=== PATIENT | female | born 1985 | race Caucasian/White ===

== ENCOUNTER 2017-12-09 12:29 | Emergency (ER) | payer MEDICAID ==
[2017-12-09] MEDS ORDERED: HYDROmorphONE/DILAUDID 1 MG/ML INJ IVP ONE (13:16)
[2017-12-09] MEDS ORDERED: ONDANSETRON 4 MG/2 ML VIAL IVP ONE (13:16)
[2017-12-09] MEDS ORDERED: NS 1,000 ML IV ONE (13:16)
--- NOTE | 2017-12-09 13:18 | EDPHY ---
H & P Smoking Status: Never smoked Time Seen by Provider: 12/09/17 12:47 HPI/ROS: CHIEF COMPLAINT: Abdominal pain HISTORY OF PRESENT ILLNESS: 32-year-old female presents to the emergency department with abrupt onset of right lower quadrant abdominal pain that began 2 hr prior to arrival. The patient states that she had just had intercourse and then developed pain in her right lower abdomen. Pain became more intense and she nearly fell over because it was so painful. She feels nauseous. She has a history of ovarian cyst, specifically polycystic ovarian syndrome, and endometriosis. She has had previous surgery. No chest pain or difficulty breathing. No fevers or chills. No urinary symptoms. She is currently on her menstrual cycle. She has a history of very irregular menstrual cycles. REVIEW OF SYSTEMS: Constitutional: No fever, no chills. Eyes: No double or blurry vision. ENT: No sore throat. Respiratory: No cough, no shortness of breath. Cardiac: No chest pain. Gastrointestinal: Abdominal pain as above. No vomiting or diarrhea. Genitourinary: No dysuria. Musculoskeletal: No neck or back pain. Skin: No rashes. Neurological: No headache. (Chico Mcguire) Past Medical/Surgical History: Endometriosis, PCOS, irregular menses (Chico Mcguire) Social History: Single (Chico Mcguire) Physical Exam: General Appearance: Alert, no distress. Afebrile. Eyes: Pupils equal and round. Extraocular motions are all intact. ENT: Mouth: Mucous membranes moist. Respiratory: No wheezing, rhonchi, or rales, lungs are clear to auscultation. Cardiovascular: Regular rate and rhythm. Gastrointestinal: Abdomen is soft. Tenderness with palpation especially the right lower quadrant. There is no masses, rebound or guarding noted. No CVA tenderness bilaterally. Neurological: Alert and oriented x 3, cranial nerves II through XII grossly intact Skin: Warm and dry, no rashes. Musculoskeletal: Nontender to palpate along the cervical, thoracic or lumbar spine. Neck is supple. Extremities: Full range of motion and no peripheral edema. Psychiatric: Patient is oriented X 3, there is no agitation. (Chico Mcguire) Constitutional: Initial Vital Signs Temperature (C) 36.7 C 12/09/17 12:33 Heart Rate 79 12/09/17 12:33 Respiratory Rate 16 12/09/17 12:33 Blood Pressure 131/86 H 12/09/17 12:33 O2 Sat (%) 97 12/09/17 12:33 O2 Delivery Mode Room Air Allergies/Adverse Reactions: No Known Allergies Allergy (Unverified 12/09/17 12:33) Home Medications: Medication Instructions Recorded oxyCODONE/APAP 5/325 [Percocet 1 - 2 tab PO Q4-6PRN PRN #11 tab 12/09/17 5/325] Medical Decision Making - Diagnostics Imaging: Discussed imaging studies w/ call manager Radiologist - Diagnostics Imaging Results: Imaging Impressions Abdomen Ultrasound 12/09/17 13:17 Impression: Trace free fluid with nonvisualization of the appendix. Findings discussed with CHICO MCGUIRE 12/09/2017 at 14:53. Pelvic/Renal Ultrasound 12/09/17 13:17 Impression: 1. No acute findings. 2. Enlarged polycystic ovaries. 3. Indeterminate 3.7 cm right adnexal structure that could be related to endometriosis. 4. Additional findings as above. Findings discussed with Chico Mcguire PA-C, 12/09/2017 at 14:53. Abdomen CT 12/09/17 15:07 Impression: 1. Negative for appendicitis. 2. See above report for additional findings. Results called and discussed with CHICO MCGUIRE PAC on 12/09/2017 at 16:04 ED Course/Re-evaluation: The patient was evaluated and managed by the physician's assistant professor of mathematics. My cosignature indicates that I reviewed the chart and I agree with the findings and plan of care as documented. I am the secondary supervising physician. ( Netta Gutierrez) 32-year-old female presents to the emergency department with abdominal pain. I was concerned about possible ovarian torsion. Ultrasound reveals multiple cysts both ovaries including a 3 mm structure that could represent endometrioma. Unable to visualize appendix. CT scan of the appendix was normal. Patient is feeling much better. She was given 30 mg of Toradol IV. She is comfortable being discharged home. (Chico Mcguire) Differential Diagnosis: Including but not limited to ovarian cyst, ovarian torsion, urinary tract infection, pyelonephritis, acute appendicitis (Chico Mcguire) - Data Points Laboratory Results: Laboratory Results 12/09/17 12:50 12/09/17 12:50 12/09/17 12/09/17 12/09/17 16:15 12:50 12:50 WBC RBC Hgb Hct MCV MCH MCHC RDW Plt Count MPV Neut % (Auto) Lymph % (Auto) [place] % (Auto) Eos % (Auto) Baso % (Auto) Nucleat RBC Rel Count Absolute Neuts (auto) Absolute Lymphs (auto) Absolute Monos (auto) Absolute Eos (auto) Absolute Basos (auto) Absolute Nucleated RBC Immature Gran % Immature Gran # Sodium 141 mEq/L mEq/L (135-145) Potassium 4.8 mEq/L mEq/L (3.5-5.2) Chloride 105 mEq/L mEq/L (97-110) Carbon Dioxide 25 mEq/l mEq/l (22-31) Anion Gap 11 mEq/L mEq/L (8-16) BUN 11 mg/dL mg/dL (7-23) Creatinine 0.8 mg/dL mg/dL (0.6-1.0) Estimated GFR > 60 Glucose 86 mg/dL mg/dL (70-100) Calcium 9.3 mg/dL mg/dL (8.5-10.4) Beta HCG, Qual NEGATIVE Urine Color YELLOW Urine Appearance CLEAR Urine pH 8.0 H (5.0-7.5) Ur Specific [place] 1.014 (1.002-1.030) Urine Protein NEGATIVE (NEGATIVE) Urine Ketones NEGATIVE (NEGATIVE) Urine Blood 3+ H (NEGATIVE) Urine Nitrate NEGATIVE (NEGATIVE) Urine Bilirubin NEGATIVE (NEGATIVE) Urine Urobilinogen NEGATIVE EU EU (0.2-1.0) Ur Leukocyte Esterase NEGATIVE (NEGATIVE) Urine RBC 10-15 /hpf H /hpf (0-3) Urine WBC 1-3 /hpf /hpf (0-3) Ur Epithelial Cells TRACE /lpf /lpf (NONE-1+) Urine Mucus TRACE /lpf /lpf (NONE-1+) Urine Glucose NEGATIVE (NEGATIVE) 12/09/17 12:50 WBC 5.11 10^3/uL 10^3/uL (3.80-9.50) RBC 4.63 10^6/uL 10^6/uL (4.18-5.33) Hgb 15.0 g/dL g/dL (12.6-16.3) Hct 42.1 % % (38.0-47.0) MCV 90.9 fL fL (81.5-99.8) MCH 32.4 pg pg (27.9-34.1) MCHC 35.6 g/dL g/dL (32.4-36.7) RDW 12.2 % % (11.5-15.2) Plt Count 205 10^3/uL 10^3/uL (150-400) MPV 11.2 fL fL (8.7-11.7) Neut % (Auto) 47.0 % % (39.3-74.2) Lymph % (Auto) 40.7 % % (15.0-45.0) [place] % (Auto) 8.6 % % (4.5-13.0) Eos % (Auto) 2.7 % % (0.6-7.6) Baso % (Auto) 0.8 % % (0.3-1.7) Nucleat RBC Rel Count 0.0 % % (0.0-0.2) Absolute Neuts (auto) 2.40 10^3/uL 10^3/uL (1.70-6.50) Absolute Lymphs (auto) 2.08 10^3/uL 10^3/uL (1.00-3.00) Absolute Monos (auto) 0.44 10^3/uL 10^3/uL (0.30-0.80) Absolute Eos (auto) 0.14 10^3/uL 10^3/uL (0.03-0.40) Absolute Basos (auto) 0.04 10^3/uL 10^3/uL (0.02-0.10) Absolute Nucleated RBC 0.00 10^3/uL 10^3/uL (0-0.01) Immature Gran % 0.2 % % (0.0-1.1) Immature Gran # 0.01 10^3/uL 10^3/uL (0.00-0.10) Sodium Potassium Chloride Carbon Dioxide Anion Gap BUN Creatinine Estimated GFR Glucose Calcium Beta HCG, Qual Urine Color Urine Appearance Urine pH Ur Specific [place] Urine Protein Urine Ketones Urine Blood Urine Nitrate Urine Bilirubin Urine Urobilinogen Ur Leukocyte Esterase Urine RBC Urine WBC Ur Epithelial Cells Urine Mucus Urine Glucose Medications Given: Discontinued Medications Hydromorphone HCl (Dilaudid) 0.5 mg IVP EDNOW ONE Stop: 12/09/17 13:17 Last Admin: 12/09/17 13:22 Dose: 0.5 mg Sodium Chloride (Ns) 1,000 mls @ 0 mls/hr IV ONCE ONE PRN Reason: Wide Open Stop: 12/09/17 13:17 Last Admin: 12/09/17 13:22 Dose: 1,000 mls Ketorolac Tromethamine (Toradol) 30 mg IVP EDNOW ONE Stop: 12/09/17 16:02 Last Admin: 12/09/17 16:09 Dose: 30 mg Ondansetron HCl (Zofran) 4 mg IVP EDNOW ONE Stop: 12/09/17 13:17 Last Admin: 12/09/17 13:21 Dose: 4 mg Departure - Departure Disposition: Home, Routine, Self-Care Clinical Impression: Endometriosis Abdominal pain Qualifiers: Abdominal location: right lower quadrant Qualified Code(s): R10.31 - Right lower quadrant pain Ovarian cyst Qualifiers: Laterality: right Qualified Code(s): N83.201 - Unspecified ovarian cyst, right side Condition: Good Instructions: Endometriosis (ED), Ovarian Cyst (ED), Acute Abdominal Pain (ED) Additional Instructions: Abdominal Pain: Return to the Emergency Department immediately for increasing pain, fever, vomiting, or if not completely better in 8-12 hours. Ibuprofen 600 mg every 8 hr as needed for pain. Your given a dose of IV Toradol in the emergency department so please do not take additional ibuprofen today. Follow-up with OBGYN as discussed. Referrals: Bonny Dominguez MD [Medical Doctor] - 2-3 days without fail (OBGYN on-call) Prescriptions: oxyCODONE/APAP 5/325 [Percocet 5/325] 1 - 2 tab PO Q4-6PRN PRN #11 tab PRN Reason: For Moderate To Severe Pain
[2017-12-09] MEDS ORDERED: HYDROmorphONE/DILAUDID 2 MG/ML INJ ONE (13:20)
[2017-12-09 13:23] LABS: PLATELET COUNT 205 10^3/uL (150-400)
[2017-12-09] MEDS ORDERED: IOPAMIDOL (ISOVUE-300) 100 ML BTL ONE (15:14)
[2017-12-09] MEDS ORDERED: KETOROLAC 30 MG/1 ML SDV IVP ONE (16:01)
[2017-12-09 16:20] VITALS: BP 116/72
== END 2017-12-09 16:42 | disposition home or self-care (01) ==
DX: N80.9 Endometriosis, unspecified (principal); N83.201 Unspecified ovarian cyst, right side
CPT/HCPCS: 96374; J1170; J1885; J2405; Q9967

== ENCOUNTER → 2018-10-16 | Outpatient (CLI) | payer MEDICAID | LOC: BMCIMAGING 13:55 | PROVIDERS: ATTEND Family Medicine | DX: M25.751 Osteophyte, right hip (principal); Q65.89 Other specified congenital deformities of hip; M46.97 Unspecified inflammatory spondylopathy, lumbosacral region; Z88.2 Allergy status to sulfonamides; Z91.040 Latex allergy status ==

== ENCOUNTER 2018-10-30 10:52 | Emergency (ER) | payer MEDICAID ==
[2018-10-30] MEDS ORDERED: ONDANSETRON 4 MG/2 ML VIAL IVP PRN (11:30)
[2018-10-30] MEDS ORDERED: HYDROmorphONE/DILAUDID 2 MG/ML INJ IVP ONE ×3 (11:30→13:43)
[2018-10-30] MEDS ORDERED: NS 1,000 ML IV ONE (11:30)
--- NOTE | 2018-10-30 11:34 | EDPHY ---
General Time Seen by Provider: 10/30/18 11:31 Narrative: CLINICAL IMPRESSION: Right lower quadrant pain, nausea ASSESSMENT/PLAN: Patient is a 33 year old female who presents who presents with nausea and right lower quadrant pain. Patient is afebrile, she is uncomfortable appearing however not toxic-appearing. Her abdomen is soft, tenderness to palpation in the right lower quadrant without rebound or guarding. Her vital signs were reviewed, no signs of sepsis or serious bacterial illness. CBC with no evidence of leukocytosis, BMP grossly unremarkable. UA revealed no evidence of leukocyte esterase or nitrites, do not suspect UTI. negative, rules out ectopic. US with no cystic or solid adnexal masses, no intraperitoneal fluid , normal blood flow- no e/o torsion, no ovarian cyst or TOA. On repeat examination the patient continued to have pain, proceeded with abdominal CT which revealed a normal appearing appendix, moderate amount of stool and increased pelvic vasculature which could be suggestive of pelvic venous congestion; no other acute findings. This patient presents with lower abdominal pain of unclear etiology; query secondary to underlying stool burden. There was no evidence of acute appendicitis, ischemic bowel, bowel perforation or any other life threatening disease. The patient was given narcotic with improvement of her pain. She is well established with her OBGYN, does not have a primary care provider. I have discussed the importance of close follow-up and given her referral to establish care with a PCP. The patient will otherwise continue Tylenol and/or ibuprofen as needed for pain, discussed bowel regimen for underlying constipation. Conservative return precautions discussed-she will return for significantly worsening or uncontrolled pain, fever, nausea and vomiting, signs of dehydration or for any other concerning symptom. Patient verbalized understanding and she is in agreement with this plan. DIFFERENTIAL DX: Abdominal pain in a female including but not limited to ovarian cyst, pelvic inflammatory disease, ovarian torsion, urinary tract infection, and appendicitis. ED COURSE: 1325: Discussed case with radiologist, enlarged follicles, no other significant acute findings on ultrasound. Will proceed with CT. Discussed with Dr. Matute. 1335: Ultrasound results reviewed with patient, she is requesting more pain medication at this time. Her abdomen remained soft with tenderness in the right lower quadrant, no evidence of a surgical abdomen. CHIEF COMPLAINT: Right lower quadrant pain, nausea HPI: Patient is a 33-year-old female with a significant history of PCOS, endometriosis, dysfunctional uterine bleeding and ovarian cyst who presents to the Emergency Department with sudden-onset right lower quadrant pain and nausea. Patient with a history of ovarian cyst with rupture, feels similar however much more intense. Patient reports that approximately 9:30 a.m. this morning she had a sudden onset right lower quadrant pain. She is currently on her menses, she has a very irregular menstrual cycle. She denies any significant bleeding. Patient has low-grade nausea, has not had any vomiting. She has not taken anything for the pain. She is sweating secondary to the pain being very intense. No history of abdominal surgeries, history of remote IUD with perforation last spring. Patient denies any fevers, chills, chest pain, shortness of breath or vomiting. Bowel movements have been normal. She denies any urinary symptoms to include dysuria, hematuria or frequency. She denies the possibility of being , denies any concern for STI or abnormal discharge. PMH: Ovarian cyst, endometriosis, PCOS Family History: Noncontributory Social History: Denies illicit drug use or cigarette smoking REVIEW OF SYSTEMS: All other systems negative Constitutional: Decreased appetite. No fever, no chills. Eyes: No discharge, vision change ENT: No sore throat, congestion, ear pain. Cardiovascular: No chest pain, no palpitations. Respiratory: No cough, no shortness of breath. Gastrointestinal: Right lower quadrant pain, nausea. No vomiting, diarrhea. Genitourinary: No hematuria, dysuria, flank pain. Musculoskeletal: No back pain, joint swelling, joint pain, myalgias. Skin: No rashes, color change. Neurological: No headache, dizziness, weakness. PHYSICAL EXAM: General Appearance: Well-developed, buckled over in obvious discomfort however not toxic-appearing. HENT: Normocephalic, atraumatic. Bilateral external ears are normal. Bilateral tympanic membranes are normal with pearly bundy reflex. Nares are clear, mucosa is pink. Oropharynx is clear, uvula is midline. There is no tonsillar enlargement or exudate. The dentition is normal. Eyes: PERRLA, EOMI intact. Conjunctiva pink, no pallor or injection. Neck: Supple, nontender, no lymphadenopathy, no midline pain, FROM, no meningismus. Respiratory: There are no retractions, lungs are clear to auscultation. Cardiac: Regular rate and rhythm, no murmurs or gallops. Gastrointestinal: Abdomen is soft, nondistended, bowel sounds normal; patient with tenderness to palpation in the right lower quadrant, no masses/hernia, no rigidity, guarding or focal peritoneal findings. Neurological: Alert and oriented x 3, CN 2-12 grossly intact, normal gait no ataxia, DTR's intact, normal sensation and strength Skin: Warm, dry, no rashes, no nodules on palpation. Musculoskeletal: Extremities are symmetrical, full range of motion, no tenderness, deformity, swelling, or erythema. Psychiatric: Patient is oriented X 3, there is no agitation. MEDICAL DECISION MAKING: Patient was seen independently. Secondary supervising physician at time of evaluation was Dr. Matute, he did not evaluate this patient. Diagnosis: Right lower quadrant pain, nausea. New, requires workup Summary: See Assessment and Plan for summary of ED visit Clinical lab tests: ordered / reviewed. Independent visualization of images, tracing, or specimens: Yes. Decision to obtain medical records or history from someone other than the patient: No Review / Summarize previous medical records: Yes Discussed patient with another provider: Yes, Dr. Matute Patient Progress: Stable, discharged. (Africa Santana) Medical Decision Making: I did not see this patient while she was in the emergency department. However her care was discussed with the PA while the patient was in the department. I agree with treatment plan and management (Seng Matute) - Objective Vital Signs: Initial Vital Signs Temperature (C) 36.8 C 10/30/18 11:02 Heart Rate 87 10/30/18 11:02 Blood Pressure 111/79 10/30/18 11:02 O2 Sat (%) 99 10/30/18 11:02 O2 Delivery Mode Room Air O2 (L/minute) 1 Allergies/Adverse Reactions: Sulfa (Sulfonamide Antibiotics) Allergy (Verified 10/30/18 11:01) Home Medications: Medication Instructions Recorded oxyCODONE/APAP 5/325 [Percocet 1 - 2 tab PO Q4-6PRN PRN #11 tab 12/09/17 5/325] Laboratory Results: Laboratory Results 10/30/18 11:30 10/30/18 11:30 Medications Given: Discontinued Medications Hydromorphone HCl (Dilaudid) 0.5 mg IVP EDNOW ONE Stop: 10/30/18 11:31 Last Admin: 10/30/18 11:34 Dose: 0.5 mg Hydromorphone HCl (Dilaudid) 0.5 mg IVP EDNOW ONE Stop: 10/30/18 11:55 Last Admin: 10/30/18 12:01 Dose: 0.5 mg Hydromorphone HCl (Dilaudid) 0.5 mg IVP EDNOW ONE Stop: 10/30/18 13:44 Last Admin: 10/30/18 13:58 Dose: 0.5 mg Sodium Chloride (Ns) 1,000 mls @ 0 mls/hr IV ONCE ONE PRN Reason: Wide Open Stop: 10/30/18 11:31 Last Admin: 10/30/18 11:33 Dose: 1,000 mls Lorazepam (Ativan Injection) 0.5 mg IVP EDNOW ONE Stop: 10/30/18 13:00 Last Admin: 10/30/18 13:03 Dose: 0.5 mg Lorazepam (Ativan Injection) 0.5 mg IVP EDNOW ONE Stop: 10/30/18 13:00 Last Admin: 10/30/18 13:06 Dose: Not Given Ondansetron HCl (Zofran) 4 mg IVP Q4 PRN PRN Reason: Nausea/Vomiting, Can't Take PO Stop: 04/28/19 11:29 Last Admin: 10/30/18 11:34 Dose: 4 mg Departure - Departure Disposition: Home, Routine, Self-Care Clinical Impression: Right lower quadrant abdominal pain Condition: Good Instructions: Abdominal Pain (ED) Additional Instructions: DISCHARGE INSTRUCTIONS FROM YOUR DOCTOR Thank you for visiting our emergency department today. Please keep in mind that discharge from the emergency department does not mean that there is nothing wrong - it simply means that we have not identified an emergency condition that requires further evaluation or treatment in the hospital. You should always plan to follow up with primary care for re-evaluation of your condition in the next 2-3 days. Rest, push non-diuretic, non-caffeinated fluids, clear liquid diet, then a BRAT diet (bananas, rice, applesauce, toast), then slowly advance diet to normal. Attempt small frequent meals. For pain control: You may take Tylenol, I recommend 500-1000 mg every 6-8 hours as needed. Take with food and a full glass of water. Stop taking if this is upsetting her stomach. Do not exceed 4000 mg in a 24 hr period. You may also take ibuprofen, recommend 400 mg every 6 hr. Take with food and a full glass of water. Stop taking if this upsets her stomach. Do not exceed 2400 mg in a [address] showed moderate constipation. Is important that you stay hydrated. I recommend taking 100 mg of Colace twice per day. You may also take MiraLax daily, it is a powder form of gentle laxative the complacent any drink. Please increase her overall fiber intake. Schedule a follow-up appointment with your primary care physician in the next 1- 2 days for re-evaluation. Bring a copy of your test results with you to that appointment. Return for increased or unmanageable pain, new site or character of pain, flank pain, groin pain, pelvic pain, development of fever, chills, recurrent vomiting , vomiting blood or coffee grounds, diarrhea, constipation, bloody stools, black tarry stools, burning or pain with urination, bloody urine, inability to urinate, decreased urine output or other signs of dehydration, dizziness, weakness, fainting, difficulty breathing or swallowing, chest pain, or for any other new, worsening or worrisome symptoms. People present with illnesses and injuries in different ways, and it is always possible that we have missed something. You may always return for re-evaluation if symptoms worsen or if they are not improving or if you develop new/different symptoms. Again, thank you for choosing our emergency department. We hope that you feel better. Referrals: Zbigniew Stanton MD [place] [place] - 1-2 days without fail (Please establish care with a primary care provider)
[2018-10-30 11:53] LABS: PLATELET COUNT 267 10^3/uL (150-400)
[2018-10-30] MEDS ORDERED: LORazepam 2 MG/ML INJ IVP ONE ×2 (12:59)
[2018-10-30] MEDS ORDERED: IOPAMIDOL (ISOVUE-300) 100 ML BTL ONE (13:35)
[2018-10-30 16:01] VITALS: BP 101/59
== END 2018-10-30 16:04 | disposition home or self-care (01) ==
DX: R10.31 Right lower quadrant pain (principal); R11.0 Nausea
CPT/HCPCS: 96374; J1170; J2060; J2405; Q9967